=== PATIENT | male | born 1985 | race Caucasian/White ===

== ENCOUNTER 2021-07-04 21:12 | Emergency (ER) | payer OTHER, MEDICAID ==
[2021-07-04] MEDS: HYDROmorphone 1 MG/ML Syringe IM ONE (22:04)
[2021-07-04] MEDS: Sodium Chloride 0.9% 10 ML Syringe FLUSH PRN (23:08)
[2021-07-04] MEDS: Morphine 4 MG/ML Syringe IVPUSH ONE (23:09)
[2021-07-04] MEDS: Ondansetron 4 MG/2 ML SDV IVPUSH ONE (23:09)
[2021-07-05] MEDS: oxyCODONE ER 10 MG TAB.ER PO ONE (00:17)
== END 2021-07-05 00:20 | disposition home or self-care (01) ==
LOC: JD.ED 21:12
DX: S22.31XA Fracture of one rib, right side, initial encounter for closed fracture (principal); S22.069A Unspecified fracture of T7-T8 vertebra, initial encounter for closed fracture; S22.079A Unspecified fracture of T9-T10 vertebra, initial encounter for closed fracture; Z72.0 Tobacco use; Z88.0 Allergy status to penicillin; Z88.8 Allergy status to other drugs, medicaments and biological substances; V89.2XXA Person injured in unspecified motor-vehicle accident, traffic, initial encounter; Y92.410 Unspecified street and highway as the place of occurrence of the external cause
CPT/HCPCS: 71250; 71250-26; 72128; 72128-26; 96372; 96374; 96375; 99283-25; A9270-GY; J1170; J2270; J2405